=== PATIENT | male | born 1970 | race Caucasian/White ===

== ENCOUNTER 2017-03-17 16:34 | Emergency (ER) | payer SELFPAY ==
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
[~2017-03-17 16:34] MED LIST: ANTIVERT; ANXIETY MED; BACTRIM DS TABL1 TA1; BACTRIM DS TABL1 TA1 PO; CHOLESTEROL MED; CIPRO PO; CLEOCIN PO; DARVOCET-N 1001 TA1 PO; FAMVIR500 MG PO; K-DUR20 ME1 DOB; KEFLEX PO; LORTAB 7.5-5001 TAB PO; MOTRIN600 MG; NO MEDICATIONS; PHENERGAN PO; PHENERGAN25 MG PO; PROTONIX20 MG; STOMACH MED; TYLENOL #3 PO; VICODIN 5/500 T1 TAB PO; ZOFRAN
[2017-03-17] MEDS ORDERED: VOLTAREN75 MG PO (18:24)
[2017-03-17] MEDS ORDERED: AUGMENTIN PO (18:24)
[2017-03-17] MEDS ORDERED: BACTROBAN15 GM TOP (18:25)
== END 2017-03-17 18:25 | disposition home or self-care (01) ==
LOC: SED 16:34
DX: S00.83XA Contusion of other part of head, initial encounter (principal); F41.9 Anxiety disorder, unspecified; Z98.890 Other specified postprocedural states; F17.200 Nicotine dependence, unspecified, uncomplicated; V86.59XA Driver of other special all-terrain or other off-road motor vehicle injured in nontraffic accident, initial encounter
CPT/HCPCS: 70486; 90471; 90715; 99284